=== PATIENT | female | born 1950 | race Caucasian/White ===

== ENCOUNTER 2018-12-20 16:57 | Inpatient (IN) ==
[2018-12-20 17:30] LABS: Baso % (Auto) 0.2 % (0.0-2.0); Hematocrit 36.7 % (35.0-46.0); Hemoglobin 12.1 gm/dL (11.6-15.3); Lymph # (Auto) 1.3 th/mm3 (1.0-4.8); Lymph % (Auto) 10.8 % (9.0-44.0); Mean Corpuscular HGB Conc 33.1 % (32.0-36.0); Mean Corpuscular Hemoglobin 30.6 pg (27.0-34.0); Mean Corpuscular Volume 92.5 fL (80.0-100.0); Mean Platelet Volume 7.5 fL (7.0-11.0); Mono # (Auto) 0.4 th/mm3 (0.0-0.9); Mono % (Auto) 3.5 % (0.0-8.0); Neut # (Auto) 10.5 th/mm3 (1.8-7.7); Neut % (Auto) 85.5 % (16.0-70.0); Platelet Count 295 th/mm3 (150-450); Red Blood Count 3.97 mil/mm3 (4.00-5.30); Red Cell Distribution Width 14.2 % (11.6-17.2); White Blood Count 12.3 th/mm3 (4.0-11.0)
[2018-12-20 17:51] LABS: Albumin 3.4 g/dL (3.4-5.0); Anion Gap 5 meq/L (5-15); Aspartate Aminotransferase 21 U/L (15-37); Blood Urea Nitrogen 30 mg/dL (7-18); Carbon Dioxide 31.9 meq/L (21.0-32.0); Chloride 109 meq/L (98-107); Glomerular Filtration Rate 56 mL/min (>89); Glucose,Random 196 mg/dL (74-106); Sodium 146 meq/L (136-145)
--- NOTE | 2018-12-20 17:51 | ED ---
HPI General Chief complaint: Respiratory Symptoms Stated complaint: resp complaint Time Seen by Provider: 12/20/18 17:06 History of Present Illness HPI narrative: Patient is a 68-year-old female presents emergency department for evaluation of shortness of breath. According to EMS the patient was satting about 82% on her home oxygen at home. She apparently was just here for COPD exacerbation spent several days in the hospital and ultimately discharged. States she is on steroids currently, EMS did give under 25 mg of Solu-Medrol and 3 albuterol treatments prior to arrival and her saturations 100% on the breathing treatment. Patient having prolonged expiration and short phrase dyspnea on arrival limiting her history somewhat. Related Data Home Medications Medication Instructions Recorded Confirmed albuterol sulfate [Ventolin HFA] 2 puff INHALATION Q6H PRN 12/19/18 12/20/18 budesonide-formoterol [Symbicort] 2 puff INHALATION BID 12/19/18 12/20/18 bupropion HCl 150 mg PO DAILY 12/19/18 12/20/18 gemfibrozil 600 mg PO DAILY 12/19/18 12/20/18 tiotropium bromide [Spiriva with 1 cap INHALATION DAILY 12/19/18 12/20/18 HandiHaler] Previous Rx's Medication Instructions Recorded aspirin 81 mg PO DAILY #30 tab 12/19/18 atorvastatin 40 mg PO HS 30 Days #30 tab 12/19/18 benzonatate [Tessalon Perles] 100 mg PO Q8H PRN #21 cap 12/19/18 carvedilol [Coreg] 3.125 mg PO BID #60 tab 12/19/18 enalapril maleate 5 mg PO BID #60 tab 12/19/18 guaifenesin [Mucinex] 600 mg PO BID #14 tab 12/19/18 isosorbide mononitrate 30 mg PO DAILY@0700 #30 tab 12/19/18 prednisone 20 mg PO BID #15 tab 12/19/18 levofloxacin [Levaquin] 500 mg PO DAILY 5 Days #5 tab 12/20/18 Allergies Allergy/AdvReac Type Severity Reaction Status Date / Time No Known Allergies Allergy Verified 12/20/18 17:23 Review of Systems ROS: all other systems reviewed are negative [facility] Medical History Medical History Myocardial infarction (Acute) COPD (chronic obstructive pulmonary disease) (Acute) Hyperlipidemia (Acute) Surgical History Surgical History Hx of cardiac cath (Acute) History of bilateral tubal ligation (Acute) Status post appendectomy (Acute) Family History Family History Other Coronary artery disease Diabetes mellitus Social History Social History Substance History: No History of Abuse 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 SKIN: Focused skin assessment warm/dry. HEAD: Atraumatic. Normocephalic. EYES: Pupils equal and round. No scleral icterus. No injection or drainage. ENT: No nasal bleeding or discharge. Mucous membranes pink and moist. NECK: Trachea midline. No JVD. CARDIOVASCULAR: Regular rate and rhythm. No murmur appreciated. RESPIRATORY: As above patient with prolonged expiration phase, expiratory wheezing throughout all lung lara. No rales or rhonchi. There are some intercostal retractions. Tripod position. GASTROINTESTINAL: Abdomen soft, non-tender, nondistended. Hepatic and splenic margins not palpable. MUSCULOSKELETAL: No obvious deformities. No clubbing. No cyanosis. No edema. NEUROLOGICAL: Awake and alert. No obvious cranial nerve deficits. Motor grossly within normal limits. Normal speech. PSYCHIATRIC: Appropriate mood and affect; insight and judgment normal. Course Initial Documented Vital Signs Temperature 98.2 F 12/20/18 17:07 Pulse Rate 108 H 12/20/18 17:07 Respiratory Rate 28 H 12/20/18 17:07 Blood Pressure 115/78 12/20/18 17:07 Pulse Oximetry 96 12/20/18 17:07 Last Documented Vital Signs Temperature 98.4 F 12/20/18 18:12 Pulse Rate 105 H 12/20/18 19:46 Respiratory Rate 24 12/20/18 19:46 Blood Pressure 143/75 H 12/20/18 19:00 Pulse Oximetry 100 12/20/18 19:46 Medical Decision Making MDM Narrative Medical decision making narrative: Patient is improved significantly with steroids, DuoNeb given here in the emergency department, still with expiratory wheezing but the patient is now able to speak in long sentences. Chest x-ray clear, labs are reassuring. An additional 3 duo nebs have been ordered. She may still require readmission but I think is reasonable to hold her here a little longer to see if she improves enough to go home. The patient was reexamined after DuoNeb treatment, she has persistent significant inspiratory and expiratory wheezing. She was ambulated and she became quite dyspneic during ambulation with an oxygen saturation in the low 90s on 2 L. She was admitted for observation for COPD exacerbation. Medical Screen Exam Complete: Yes Emergency Medical Condition: Yes Lab Data Result diagrams: 12/20/18 17:15 12/20/18 17:15 Lab Results 12/20/18 12/20/18 Range/Units 17:15 17:15 WBC 12.3 H (4.0-11.0) th/mm3 RBC 3.97 L (4.00-5.30) mil/mm3 Hgb 12.1 (11.6-15.3) gm/dL Hct 36.7 (35.0-46.0) % MCV 92.5 (80.0-100.0) fL MCH 30.6 (27.0-34.0) pg MCHC 33.1 (32.0-36.0) % RDW 14.2 (11.6-17.2) % Plt Count 295 (150-450) th/mm3 MPV 7.5 (7.0-11.0) fL Neut % (Auto) 85.5 H (16.0-70.0) % Lymph % (Auto) 10.8 (9.0-44.0) % Iron % (Auto) 3.5 (0.0-8.0) % Eos % (Auto) 0.0 (0.0-4.0) % Baso % (Auto) 0.2 (0.0-2.0) % Neut # (Auto) 10.5 H (1.8-7.7) th/mm3 Lymph # (Auto) 1.3 (1.0-4.8) th/mm3 Iron # (Auto) 0.4 (0.0-0.9) th/mm3 Eos # (Auto) 0.0 (0.0-0.4) th/mm3 Baso # (Auto) 0.0 (0.0-0.2) th/mm3 WBC Differential . Differential Comment Auto diff final Sodium 146 H (136-145) meq/L Potassium 4.0 (3.5-5.1) meq/L Chloride 109 H (98-107) meq/L Carbon Dioxide 31.9 (21.0-32.0) meq/L Anion Gap 5 (5-15) meq/L BUN 30 H (7-18) mg/dL Creatinine 0.99 (0.50-1.00) mg/dL Estimated GFR 56 L (>89) mL/min Random Glucose 196 H (74-106) mg/dL Calcium 8.0 L (8.5-10.1) mg/dL Total Bilirubin 0.2 (0.2-1.0) mg/dL AST 21 (15-37) U/L ALT 25 (10-53) U/L Alkaline Phosphatase 69 (45-117) U/L Total Protein 6.4 (6.4-8.2) g/dL Albumin 3.4 (3.4-5.0) g/dL Imaging Data Radiologist's impression: Chest X-Ray 12/20/18 17:08 CONCLUSION: No acute cardiopulmonary disease. Discharge Plan Discharge Disposition Patient Disposition: ED Admit(ED Internal Use Only) Discharge Condition Condition: Stable Discharge Order Discharge Orders: ED Use Only Admit Order (Routine); Ordered 12/20/18 Ordered By: Homer Campbell Discharge Details Diagnosis: COPD exacerbation Physicians Team ED Provider: Harjit Zavala ED Midlevel Provider: Homer Campbell Primary Care Provider: Primary Care Angiei,Eliane Attending Provider: Stefani Marcum Status ED Status: Admitted Observation Patient
[2018-12-20 17:54] LABS: Alanine Aminotransferase 25 U/L (10-53); Alkaline Phosphatase 69 U/L (45-117); Total Protein 6.4 g/dL (6.4-8.2)
--- NOTE | 2018-12-20 18:08 | XR ---
EXAM DATE: 12/20/2018 6:00 PM EST AGE/SEX: 68 years / Female INDICATIONS: . Short of breath CLINICAL DATA: This is the patient's sequela encounter. Patient reports that signs and symptoms have been present for 4 - 6 days and indicates a pain score of 0/10. MEDICAL/SURGICAL HISTORY: Hypertension. None. COMPARISON: [facility] [place] 1[place] SINGLE AP, 12/16/2018. . FINDINGS: PA and lateral views of the chest demonstrate the lungs to be symmetrically aerated without evidence of mass, infiltrate or effusion. The cardiomediastinal contours are unremarkable. Osseous structures are intact. CONCLUSION: No acute cardiopulmonary disease. Electronically signed by: Shashi Norris MD Board Certified Radiologist 12/20/2018 6:07 PM EST
[2018-12-20] MEDS ORDERED: guaiFENesin/Dextromethorphan 200 MG/20 MG 10 ML UDC PO ONE (19:38)
[2018-12-20] MEDS ORDERED: Acetaminophen 325 MG Tablet PO PRN (21:38)
[2018-12-20] MEDS ORDERED: Bisacodyl 10 MG Supp RECTAL PRN (21:38)
--- NOTE | 2018-12-20 21:46 | P.HPIM ---
History of Present Illness Primary Care Physician: No Primary Care Physician 68-year-old female with a past medical history significant for COPD on 2 L nasal cannula at night and as needed, hyperlipidemia and coronary artery disease resents to the emergency department for the evaluation of shortness of breath. The patient was discharged from the hospital earlier today where she was treated for a COPD exacerbation with steroids and Levaquin and diagnosed with an N STEMI during her stay. Cardiac catheterization showed mild to moderate three-vessel coronary artery disease with no definitive high-grade stenosis with overall preserved LV function EF estimated at 55%. The patient reports she was at home and had just finished lunch when she became short of breath. She reports her oxygen saturation was in the low 80s on her home pulse ox despite taking a breathing treatment. She had another nebulizer and reports that her oxygen dropped into the 70s. EMS was called for further evaluation. The patient denies any chest pain. No abdominal pain. No nausea/vomiting/ diarrhea. No focal neurologic deficits. 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) Smoking Status: Former smoker How Often Do You Have a Drink Containing Alcohol: Monthly or less Recent Travel in [facility] within the Last 8 Weeks: No Recent Out of Country Travel within the Last 8 Weeks: No Immunization History Tetanus Immunization: Unsure Medications and Allergies Allergies Allergy/AdvReac Type Severity Reaction Status Date / Time No Known Allergies Allergy Verified 12/20/18 17:23 Home Medications Medication Instructions Recorded Confirmed Type albuterol sulfate [Ventolin HFA] 2 puff INHALATION Q6H PRN 12/19/18 12/20/18 History budesonide-formoterol [Symbicort] 2 puff INHALATION BID 12/19/18 12/20/18 History bupropion HCl 150 mg PO DAILY 12/19/18 12/20/18 History gemfibrozil 600 mg PO DAILY 12/19/18 12/20/18 History tiotropium bromide [Spiriva with 1 cap INHALATION DAILY 12/19/18 12/20/18 History HandiHaler] Active Medications: Active Medications Acetaminophen (Tylenol) 650 mg PO Q4H PRN PRN Reason: Temp > 100.4 Al Hydroxide/Mg Hydroxide (Milk Of Magnesia Liq) 30 ml PO Q12H PRN PRN Reason: Mild Constipation Albuterol (Duoneb Neb (Holly)) 1 ampul NEB Q4HR NEB HOLLY Atorvastatin Calcium (Lipitor) 40 mg PO HS HOLLY Benzonatate (Tessalon Perles) 100 mg PO Q8H PRN PRN Reason: Cough Bisacodyl (Dulcolax Supp) 10 mg RECTAL DAILY PRN PRN Reason: SEVERE CONSITIPATION Heparin Sodium (Porcine) (Heparin Inj) 5,000 units SQ Q12H HOLLY Lactulose (Lactulose Liq) 30 ml PO DAILY PRN PRN Reason: SEVERE CONSITIPATION Levofloxacin (Levaquin) 750 mg PO DAILY [facility] Methylprednisolone Sodium Succinate (Solumedrol Inj) 60 mg IV.PUSH Q6H [facility] Ondansetron HCl (Zofran Inj) 4 mg IV.PUSH Q6H PRN PRN Reason: NAUSEA OR VOMITING Senna/Docusate Sodium (Nicolasa-Colace) 1 tab PO BID [facility] Sennosides (Senokot) 17.2 mg PO Q12H PRN PRN Reason: Moderate Constipation Sodium Chloride (Ns Flush) 2 ml IV.FLUSH UNSCH PRN PRN Reason: FLUSH AFTER USING IV ACCESS Last Admin: 12/20/18 17:20 Dose: 2 ml Sodium Chloride (Ns Flush) 2 ml IV.FLUSH BID HOLLY Sodium Chloride (Ns Flush) 2 ml IV.FLUSH PRN PRN PRN Reason: FLUSH AFTER USING IV ACCESS Sodium Chloride (Ns Flush) 2 ml IV.FLUSH BID HOLLY Sodium Chloride (Ns Flush) 2 ml IV.FLUSH PRN PRN PRN Reason: FLUSH AFTER USING IV ACCESS Physical Exam Vital signs: Vital Signs 12/20/18 17:07 12/20/18 17:15 12/20/18 17:16 Temperature 98.2 F 98.2 F Pulse Rate 108 H 110 H 109 H Respiratory Rate 28 H 25 H 23 Blood Pressure 115/78 115/78 Pulse Oximetry 96 94 L 95 12/20/18 18:12 12/20/18 18:35 12/20/18 19:00 Temperature 98.4 F Pulse Rate 109 H 105 H 112 H Respiratory Rate 25 H 20 24 Blood Pressure 151/72 H 143/75 H Pulse Oximetry 96 97 12/20/18 19:46 12/20/18 21:00 Temperature Pulse Rate 105 H 102 H Respiratory Rate 24 24 Blood Pressure 138/68 Pulse Oximetry 100 97 Intake & Output 12/20/18 12/20/18 12/21/18 06:59 18:59 06:59 Weight 63.796 kg Narrative: Gen.: No acute distress Head: Normocephalic. Atraumatic. EENT: Pupils equal round and reactive to light. Nose without drainage. Airway intact. Throat without injection. Cardiovascular: Regular rate and rhythm. No murmurs, rubs or gallops. Respiratory: Poor air movement. Bilateral wheezes throughout. Abdomen: Soft, nontender, nondistended. No peritoneal signs. Musculoskeletal: No gross deformities. No edema. Skin: No obvious rashes or erythema. Neuro: Sensory and motor grossly intact. Cranial nerves II through XII grossly intact. Results Labs CBC & Chem 7: 12/20/18 17:15 12/20/18 17:15 Imaging Impressions Chest X-Ray 12/20/18 17:08 CONCLUSION: No acute cardiopulmonary disease. Caprini VTE Risk Assessment Caprini VTE Risk Assessment: Moderate/High Risk (score >= 2) Caprini Risk Assessment Model: Point Value = 1 Point Value = 2 Point Value = 3 Point Value = 5 Age 41-60 Minor surgery BMI > 25 kg/m2 Swollen legs Varicose veins or History of unexplained or recurrent spontaneous Oral contraceptives or hormone replacement Sepsis (< 1 month) Serious lung disease, including pneumonia (< 1 month) Abnormal pulmonary function Acute myocardial infarction Congestive heart failure (< 1 month) History of inflammatory bowel disease Medical patient at bed rest Age 61-74 Arthroscopic surgery Major open surgery (> 45 min) Laparoscopic surgery (> 45 min) Malignancy Confined to bed (> 72 hours) Immobilizing plaster cast Central venous access Age >= 75 History of VTE Family history of VTE Factor V Leiden Prothrombin [id number] Lupus anticoagulant Anticardiolipin antibodies Elevated serum homocysteine Heparin-induced thrombocytopenia Other congenital or acquired thrombophilia Stroke (< 1 month) Elective arthroplasty Hip, pelvis, or leg fracture Acute spinal cord injury (< 1 month) Prophylaxis Regimen: Total Risk Factor Score Risk Level Prophylaxis Regimen 0-1 Low Early ambulation 2 Moderate Order ONE of the following: *Sequential Compression Device (SCD) *Heparin 5000 units SQ BID 3-4 Higher Order ONE of the following medications: *Heparin 5000 units SQ TID *Enoxaparin/Lovenox 40 mg SQ daily (WT < 150 kg, CrCl > 30 mL/min) *Enoxaparin/Lovenox 30 mg SQ daily (WT < 150 kg, CrCl > 10-29 mL/min) *Enoxaparin/Lovenox 30 mg SQ BID (WT < 150 kg, CrCl > 30 mL/min) AND/OR *Sequential Compression Device (SCD) 5 or more Highest Order ONE of the following medications: *Heparin 5000 units SQ TID (Preferred with Epidurals) *Enoxaparin/Lovenox 40 mg SQ daily (WT < 150 kg, CrCl > 30 mL/min) *Enoxaparin/Lovenox 30 mg SQ daily (WT < 150 kg, CrCl > 10-29 mL/min) *Enoxaparin/Lovenox 30 mg SQ BID (WT < 150 kg, CrCl > 30 mL/min) AND *Sequential Compression Device (SCD) Assessment and Plan Plan Assessment/plan: 1. COPD exacerbation Continue supplemental oxygen IV steroids Continue Fely Brooke scheduled Supplemental oxygen Consult pulmonology, appreciate assistance 2. Coronary artery disease See HPI for cardiac catheterization details Continue beta-olivia and aspirin 3. Hyperlipidemia Continue gemfibrozil and statin FEN Heart healthy diet Electrolytes: Monitor and replete as needed Heparin
[2018-12-20] MEDS: MethylPREDNISolone Sod Succinate Inj 125 MG/2 ML Vial IV.PUSH SCH (23:28)
[2018-12-20] MEDS: Heparin - SQ 10,000 UNITS/ML Vial SQ SCH (23:28)
[2018-12-21] MEDS: Benzonatate 100 MG Capsule PO PRN ×2 (00:04→20:55)
[2018-12-21 03:11] LABS: ABG Base Excess 5.4 mmol/L (-2-2); ABG PCO2 52 mmHg (38-42); ABG PO2 106 mmHg (61-120)
[2018-12-21] MEDS: MethylPREDNISolone Sod Succinate Inj 125 MG/2 ML Vial IV.PUSH SCH ×4 (04:34→23:26)
[2018-12-21] MEDS: Isosorbide Mononitrate 30 MG ER 24HR Tablet (Imdur) PO SCH (06:02)
[2018-12-21] MEDS: Gemfibrozil 600 MG Tablet PO SCH (08:23)
[2018-12-21] MEDS: levoFLOXacin 750 MG Tablet PO SCH (08:23)
[2018-12-21] MEDS: Senna/Docusate Sodium 8.6/50 MG Tablet PO SCH ×2 (08:24→20:48)
[2018-12-21 09:43] LABS: Baso % (Auto) 0.1 % (0.0-2.0); Hematocrit 34.2 % (35.0-46.0); Hemoglobin 11.6 gm/dL (11.6-15.3); Lymph # (Auto) 0.7 th/mm3 (1.0-4.8); Lymph % (Auto) 6.9 % (9.0-44.0); Mean Corpuscular HGB Conc 33.8 % (32.0-36.0); Mean Corpuscular Hemoglobin 30.5 pg (27.0-34.0); Mean Corpuscular Volume 90.2 fL (80.0-100.0); Mean Platelet Volume 7.5 fL (7.0-11.0); Mono # (Auto) 0.1 th/mm3 (0.0-0.9); Mono % (Auto) 1.3 % (0.0-8.0); Neut # (Auto) 9.4 th/mm3 (1.8-7.7); Neut % (Auto) 91.7 % (16.0-70.0); Platelet Count 285 th/mm3 (150-450); Red Blood Count 3.79 mil/mm3 (4.00-5.30); Red Cell Distribution Width 13.9 % (11.6-17.2); White Blood Count 10.3 th/mm3 (4.0-11.0)
[2018-12-21] MEDS: Budesonide-Formoterol 160/4.5 MCG 6 GM Inhaler INH SCH ×2 (10:10→20:48)
[2018-12-21] MEDS: buPROPion 150 MG XL 24 HR Tablet PO SCH (10:10)
[2018-12-21] MEDS: Tiotropium Bromide 18 MCG/ACT Inhaler INH SCH (10:11)
[2018-12-21 10:13] LABS: Calcium 8.4 mg/dL (8.5-10.1); Carbon Dioxide 33.3 meq/L (21.0-32.0); Potassium 3.8 meq/L (3.5-5.1)
--- NOTE | 2018-12-21 10:14 | P.PNIM ---
Subjective Interval history: Very pleasant female at the margin of the bed she appears in acute distress due to shortness of breath and wheezing. She is talking in short sentences and she is visibly short of breath. Says her oxygen saturation dropped to 80s. Says she has oxygen at home with 3 L however now she is requiring 4 L by nasal cannula. Denies chest pain. Has some nonproductive cough says she feels congested but not nothing comes out. No nausea or vomiting. She is not eating much because not much appetite Physical Exam Vital signs: Vital Signs 12/20/18 17:07 12/20/18 17:15 12/20/18 17:16 Temperature 98.2 F 98.2 F Pulse Rate 108 H 110 H 109 H Respiratory Rate 28 H 25 H 23 Blood Pressure 115/78 115/78 Pulse Oximetry 96 94 L 95 12/20/18 18:12 12/20/18 18:35 12/20/18 19:00 Temperature 98.4 F Pulse Rate 109 H 105 H 112 H Respiratory Rate 25 H 20 24 Blood Pressure 151/72 H 143/75 H Pulse Oximetry 96 97 12/20/18 19:46 12/20/18 21:00 12/20/18 23:02 Temperature Pulse Rate 105 H 102 H 103 H Respiratory Rate 24 24 24 Blood Pressure 138/68 Pulse Oximetry 100 97 12/20/18 23:35 12/21/18 00:16 12/21/18 00:36 Temperature 97.9 F Pulse Rate 95 H 99 H Respiratory Rate 24 16 Blood Pressure 162/85 H 129/71 Pulse Oximetry 95 98 97 12/21/18 01:56 12/21/18 03:20 12/21/18 04:28 Temperature 97.2 F L Pulse Rate 105 H 104 H 92 H Respiratory Rate 23 25 H 22 Blood Pressure 144/72 H Pulse Oximetry 12/21/18 04:35 12/21/18 06:28 12/21/18 07:00 Temperature Pulse Rate 93 H 96 H 94 H Respiratory Rate 20 Blood Pressure Pulse Oximetry 12/21/18 08:00 Temperature 98.6 F Pulse Rate 96 H Respiratory Rate 22 Blood Pressure 139/77 Pulse Oximetry 97 Intake & Output 12/20/18 12/21/18 12/21/18 18:59 06:59 18:59 Intake Total 120 / 120 Output Total 100 / 100 Balance Weight 63.796 kg 63 kg Intake: Oral 120 / 120 Output: Urine 100 / 100 Other: Date of Last Bowel Movement 12/20/18 12/20/18 Weight On Admission 63.796 kg Narrative: Gen.: 68 yo female, appears short of breath. Cardiovascular: Regular rate and rhythm. No murmurs, rubs or gallops. Respiratory: Poor air movement. Scattered wheezing. Short of breath. Abdomen: Soft, nontender, nondistended. No peritoneal signs. Musculoskeletal: No gross deformities. No edema. Skin: No obvious rashes or erythema. Neuro: Sensory and motor grossly intact. Cranial nerves grossly intact. Normal speech. Results Labs CBC & Chem 7: 12/21/18 09:01 12/21/18 09:01 Imaging Imaging: Impressions Chest X-Ray 12/20/18 17:08 CONCLUSION: No acute cardiopulmonary disease. Assessment and Plan Plan COPD exacerbation Acute on chronic respiratory failure patient is on 2-3 L at home. Now requiring 4 L by nasal cannula Continue supplemental oxygen IV steroids, taper as tolerated Continue Levaquin DuoNeb scheduledand as need taper Supplemental oxygen, keep O2 sat >92%, monitor Add IS, EZ Pap Consult pulmonology, appreciate assistance Coronary artery disease See HPI for cardiac catheterization details Continue beta-olivia and aspirin Hyperlipidemia Continue gemfibrozil and statin DVT ppx Heparin Progress Note: Quality VTE Deep Vein Thrombosis/Pulmonary Embolism Present on Admission: No
[2018-12-21] MEDS: Heparin - SQ 10,000 UNITS/ML Vial SQ SCH ×2 (11:24→23:26)
--- NOTE | 2018-12-21 14:18 | ECG ---
Date Performed: 12/20/2018 Time Performed: 20:26:18 PTAGE: 68 years EKG: SINUS TACHYCARDIA LOW QRS VOLTAGE IN EXTREMITY LEADS MINIMAL ST DEPRESSION ABNORMAL RHYTHM ECG Since the PREVIOUS TRACING , no significant change noted PREVIOUS TRACIN12/17/2018 04.36 DOCTOR: Carl Freitas Interpretating Date/Time 12/21/2018 14:13:38
--- NOTE | 2018-12-21 14:19 | ECG ---
Date Performed: 12/20/2018 Time Performed: 17:09:59 PTAGE: 68 years EKG: SINUS TACHYCARDIA LOW QRS VOLTAGE IN EXTREMITY LEADS ABNORMAL RHYTHM ECG Since the PREVIOUS TRACING , no significant change noted PREVIOUS TRACING DOCTOR: Carl Freitas Interpretating Date/Time 12/21/2018 14:13:50
--- NOTE | 2018-12-21 15:29 | MB ---
cc: Jacinto Renae MD DATE: 12/21/[address] Diaz. REASON FOR CONSULTATION: Evaluation shortness of breath. HISTORY OF PRESENT ILLNESS: Ms. Dumas is a 68-year-old female from [place]. She has a history of COPD. She is oxygen dependent, uses oxygen 3 liter nasal cannula. The patient was recently discharged from this hospital. She was admitted with shortness of breath and chest discomfort. She had a cardiac catheterization done by Dr. Ramirez. She was found to have 3-vessel [id number] disease; no high grade obstruction and no intervention was needed. The patient was discharged from the hospital a few hours later. She says that she was taking a shower, became more short of breath. She her oxygen back on; oxygen was still low. She did not have any chest pain. No palpitation. No nausea or vomiting. She called the ER and came back to the hospital. She had a workup done. Her blood gas showed pH 7.38, pCO2 of 52, pO2 106, bicarbonate 30, saturation 97% on 3 liters nasal cannula. Her WBC count is 10.3, hemoglobin 11.6, hematocrit 34.2, MCV 90, platelets are 285. Her sodium 145, potassium 3.8, chloride 105, CO2 of 33, BUN 20, creatinine 0.78. PAST MEDICAL HISTORY: Significant for history of COPD; she is oxygen dependent, history of recent cardiac catheterization done and hyperlipidemia. MEDICATIONS: She is currently takin. Acetaminophen. 2. Nebulizer treatment with DuoNeb. 3. Aspirin 81 mg. 4. Lipitor 40 mg a day. 5. Tessalon 100 mg every 8 hours. 6. Dulcolax suppositories. 7. Symbicort 160/4.5 two puffs twice a day. 8. Wellbutrin XL 150 mg a day. 9. Coreg 3.125 mg twice a day. 10. Vasotec 5 mg twice a day. 11. Lopid 600 mg a day. 12. Heparin 5000 every 12 hours. 13. Levaquin 750 mg a day. 14. Spiriva once a day. ALLERGIES: NO KNOWN DRUG ALLERGIES. SOCIAL HISTORY: She is a . She lives with her daughter, son-in-law, and grandchildren. She has 4 daughters. She has a history of smoking for 35 years, a pack a day, which she quit 4 years ago. No alcohol abuse. 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 REVIEW OF SYSTEMS: CONSTITUTIONAL: She is able to walk short distances; uses oxygen all the time. No headache or dizziness There is no nausea, vomiting. No DVT or pulmonary embolism. GENERAL: Elderly female, mild short of breath and she is not in any acute distress. VITAL SIGNS: Blood pressure 139/77, heart rate 96, respirations 22, temperature 96. HEENT: Pupils are equal and reactive to light. Oral mucosa and nasal mucosa normal. NECK: Supple. JVP not raised. CHEST: Good air entry. Faint rhonchi. CARDIOVASCULAR: S1, S2 normal. ABDOMEN: Benign. EXTREMITIES: No edema. IMPRESSION: 1. Chronic obstructive pulmonary disease with mild exacerbation. 2. Dyspnea. 3. Coronary artery disease. 4. Hyperlipidemia. PLAN: We will supplement oxygen to keep her saturations greater than 92%. Continue antibiotic, aerosol treatment, albuterol and Atrovent, Symbicort twice a day, Lipitor 40 mg a day and Solu-Medrol 60 mg every 6 hours. Check a bedside pulmonary function study. Further treatment pending the course in the hospital. Thank you Dr. Diaz for this consult. MD FELICITAS Leyva/lópez , 02:55 PM , 03:05 PM
[2018-12-22] MEDS: Benzonatate 100 MG Capsule PO PRN ×3 (04:49→20:59)
[2018-12-22] MEDS: MethylPREDNISolone Sod Succinate Inj 125 MG/2 ML Vial IV.PUSH SCH ×4 (06:35→22:49)
[2018-12-22] MEDS: Isosorbide Mononitrate 30 MG ER 24HR Tablet (Imdur) PO SCH (06:36)
[2018-12-22] MEDS: buPROPion 150 MG XL 24 HR Tablet PO SCH (08:11)
[2018-12-22] MEDS: Senna/Docusate Sodium 8.6/50 MG Tablet PO SCH ×2 (08:12→20:52)
[2018-12-22] MEDS: Gemfibrozil 600 MG Tablet PO SCH (08:13)
[2018-12-22] MEDS: levoFLOXacin 750 MG Tablet PO SCH (08:13)
[2018-12-22] MEDS: Tiotropium Bromide 18 MCG/ACT Inhaler INH SCH (08:14)
[2018-12-22] MEDS: Budesonide-Formoterol 160/4.5 MCG 6 GM Inhaler INH SCH ×2 (08:15→20:51)
--- NOTE | 2018-12-22 10:37 | P.PNIM ---
Subjective Interval history: The patient is in bed without much improvement today, she is still with wheezing and shortness of breath. With cough nonproductive. Speaking in short sentences this the patient is with shortness of breath. Some nausea on and off however no vomiting. Not eating much no appetite. Physical Exam Vital signs: Vital Signs 12/21/18 11:00 12/21/18 12:00 12/21/18 12:22 Temperature Pulse Rate 90 90 83 Respiratory Rate 20 18 Blood Pressure 124/88 Pulse Oximetry 12/21/18 13:00 12/21/18 14:00 12/21/18 15:00 Temperature Pulse Rate 96 H 98 H 90 Respiratory Rate Blood Pressure Pulse Oximetry 12/21/18 16:00 12/21/18 16:05 12/21/18 17:00 Temperature Pulse Rate 92 H 86 90 Respiratory Rate 22 18 Blood Pressure 134/78 Pulse Oximetry 97 12/21/18 18:00 12/21/18 19:00 12/21/18 20:00 Temperature 97.8 F Pulse Rate 90 93 H 98 H Respiratory Rate 24 Blood Pressure 126/88 Pulse Oximetry 94 L 12/21/18 20:05 12/21/18 21:00 12/21/18 22:00 Temperature Pulse Rate 97 H 94 H 86 Respiratory Rate 25 H Blood Pressure Pulse Oximetry 98 12/21/18 22:18 12/21/18 23:00 12/21/18 23:55 Temperature Pulse Rate 85 82 105 H Respiratory Rate 19 28 H Blood Pressure Pulse Oximetry 98 12/22/18 00:00 12/22/18 01:00 12/22/18 02:00 Temperature 98 F Pulse Rate 84 78 82 Respiratory Rate 20 Blood Pressure 111/67 Pulse Oximetry 97 12/22/18 03:00 12/22/18 03:50 12/22/18 04:00 Temperature 98.1 F Pulse Rate 79 90 86 Respiratory Rate 24 20 Blood Pressure 144/86 H Pulse Oximetry 90 L 12/22/18 05:00 12/22/18 06:00 12/22/18 07:37 Temperature Pulse Rate 100 H 80 97 H Respiratory Rate 18 Blood Pressure Pulse Oximetry 99 12/22/18 08:00 Temperature 98.9 F Pulse Rate 93 H Respiratory Rate 20 Blood Pressure 156/85 H Pulse Oximetry 95 Intake & Output 12/21/18 12/22/18 12/22/18 18:59 06:59 18:59 Intake Total 820 / 820 400 / 400 Output Total 400 / 400 Balance 820 / 820 0 / 0 Weight 63 kg Intake: Oral 820 / 820 400 / 400 Output: Urine 400 / 400 Other: # Voids 3 Date of Last Bowel Movement 12/20/18 12/21/18 12/21/18 Narrative: Gen.: 68 yo female, appears short of breath. Cardiovascular: Regular rate and rhythm. No murmurs, rubs or gallops. Respiratory: Poor air movement. Scattered wheezing. Short of breath. Abdomen: Soft, nontender, nondistended. No peritoneal signs. Musculoskeletal: No gross deformities. No edema. Skin: No obvious rashes or erythema. Neuro: Sensory and motor grossly intact. Cranial nerves grossly intact. Normal speech. Results Labs CBC & Chem 7: 12/21/18 09:01 12/21/18 09:01 Assessment and Plan Plan Severe COPD exacerbation Acute on chronic respiratory failure patient is on 2-3 L at home. Now requiring 4 L by nasal cannula Continue supplemental oxygen IV steroids, taper as tolerated Continue Levaquin DuoNeb scheduledand as need taper Supplemental oxygen, keep O2 sat >92%, monitor Add IS, EZ Pap Add codeine /acetaminophene, tessalon pearles for cough Consult pulmonology, appreciate assistance Protein calorie malnutrition with decreased p.o. intake secondary to severe COPD with exacerbation, add Ensure Coronary artery disease See HPI for cardiac catheterization details Continue beta-olivia and aspirin Hyperlipidemia Continue gemfibrozil and statin DVT ppx Heparin Progress Note: Quality VTE Deep Vein Thrombosis/Pulmonary Embolism Present on Admission: No
[2018-12-22] MEDS: Heparin - SQ 10,000 UNITS/ML Vial SQ SCH ×2 (11:01→22:49)
[2018-12-22] MEDS ORDERED: Benzonatate 100 MG Capsule PO PRN (11:11)
[2018-12-22] MEDS: Acetaminophen/Codeine 300/30 MG Tablet PO PRN ×2 (13:32→20:58)
[2018-12-22] MEDS: Magnesium Oxide 400 MG Tablet PO SCH (14:31)
--- NOTE | 2018-12-22 19:34 | P.PNPL ---
Subjective Interval history: 68 YOWF with Very Severe COPD PFT FEV1 19% of predicted SOB with any activity mild cough no CP Physical Exam Vital signs: Vital Signs 12/21/18 20:00 12/21/18 20:05 12/21/18 21:00 Temperature 97.8 F Pulse Rate 98 H 97 H 94 H Respiratory Rate 24 25 H Blood Pressure 126/88 Pulse Oximetry 94 L 98 12/21/18 22:00 12/21/18 22:18 12/21/18 23:00 Temperature Pulse Rate 86 85 82 Respiratory Rate 19 Blood Pressure Pulse Oximetry 98 12/21/18 23:55 12/22/18 00:00 12/22/18 01:00 Temperature 98 F Pulse Rate 105 H 84 78 Respiratory Rate 28 H 20 Blood Pressure 111/67 Pulse Oximetry 97 12/22/18 02:00 12/22/18 03:00 12/22/18 03:50 Temperature Pulse Rate 82 79 90 Respiratory Rate 24 Blood Pressure Pulse Oximetry 12/22/18 04:00 12/22/18 05:00 12/22/18 06:00 Temperature 98.1 F Pulse Rate 86 100 H 80 Respiratory Rate 20 Blood Pressure 144/86 H Pulse Oximetry 90 L 12/22/18 07:00 12/22/18 07:37 12/22/18 08:00 Temperature 98.9 F Pulse Rate 92 H 97 H 92 H Respiratory Rate 18 20 Blood Pressure 156/85 H Pulse Oximetry 99 95 12/22/18 09:00 12/22/18 10:00 12/22/18 11:00 Temperature Pulse Rate 96 H 88 86 Respiratory Rate Blood Pressure Pulse Oximetry 12/22/18 11:05 12/22/18 12:00 12/22/18 13:00 Temperature 98.8 F Pulse Rate 89 94 H 84 Respiratory Rate 22 20 Blood Pressure 124/75 Pulse Oximetry 97 12/22/18 14:00 12/22/18 14:05 12/22/18 14:41 Temperature Pulse Rate 91 H 93 H Respiratory Rate 18 18 Blood Pressure Pulse Oximetry 12/22/18 15:00 12/22/18 16:00 12/22/18 17:00 Temperature 98.1 F Pulse Rate 87 92 H 97 H Respiratory Rate 18 Blood Pressure 126/78 Pulse Oximetry 99 12/22/18 18:00 12/22/18 18:40 Temperature Pulse Rate 95 H 92 H Respiratory Rate 18 Blood Pressure Pulse Oximetry 98 Intake & Output 12/22/18 12/22/18 12/23/18 06:59 18:59 06:59 Intake Total 400 / 400 720 / 720 Output Total 400 / 400 Balance 0 / 0 720 / 720 Weight 63 kg Intake: Oral 400 / 400 720 / 720 Output: Urine 400 / 400 Other: # Voids 6 Date of Last Bowel Movement 12/21/18 12/22/18 # Bowel Movements 2 GENERAL: Elderly WF, Mild SOB SKIN: Warm and dry. HEAD: Normocephalic. EYES: No scleral icterus. No injection or drainage. NECK: Supple, trachea midline. No JVD or lymphadenopathy. CARDIOVASCULAR: Regular rate and rhythm without murmurs, gallops, or rubs. RESPIRATORY: Breath sounds equal bilaterally. No accessory muscle use. decreased Chest excuesion GASTROINTESTINAL: Abdomen soft, non-tender, nondistended. MUSCULOSKELETAL: No cyanosis, or edema. BACK: Nontender without obvious deformity. No CVA tenderness. Assessment and Plan - Plan IMPRESSION: 1. Chronic obstructive pulmonary disease with mild exacerbation. 2. Dyspnea. 3. Coronary artery disease. 4. Hyperlipidemia. 5. Very Severe COPD 6. Ch resp failure PLAN: Aerosol nebs Supplement 02 to keep sat 88-92% IV Solumedrol SQ Heparin Cont Abx DW pt about her condition and PFT result She wants to be full code
[2018-12-23] MEDS: Isosorbide Mononitrate 30 MG ER 24HR Tablet (Imdur) PO SCH (06:40)
[2018-12-23] MEDS: MethylPREDNISolone Sod Succinate Inj 125 MG/2 ML Vial IV.PUSH SCH ×3 (06:40→17:25)
[2018-12-23] MEDS: Acetaminophen/Codeine 300/30 MG Tablet PO PRN (06:43)
[2018-12-23] MEDS: Benzonatate 100 MG Capsule PO PRN (06:43)
[2018-12-23] MEDS: Tiotropium Bromide 18 MCG/ACT Inhaler INH SCH (08:23)
[2018-12-23] MEDS: Budesonide-Formoterol 160/4.5 MCG 6 GM Inhaler INH SCH (08:24)
[2018-12-23] MEDS: buPROPion 150 MG XL 24 HR Tablet PO SCH (08:25)
[2018-12-23] MEDS: levoFLOXacin 750 MG Tablet PO SCH (08:25)
[2018-12-23] MEDS: Magnesium Oxide 400 MG Tablet PO SCH (08:25)
[2018-12-23] MEDS: Gemfibrozil 600 MG Tablet PO SCH (08:25)
[2018-12-23] MEDS: Senna/Docusate Sodium 8.6/50 MG Tablet PO SCH (08:26)
[2018-12-23] MEDS: Heparin - SQ 10,000 UNITS/ML Vial SQ SCH (11:52)
[2018-12-23] MEDS: guaiFENesin 600 MG ER Tablet PO SCH (11:57)
--- NOTE | 2018-12-23 12:55 | P.PNIM ---
Subjective Interval history: Patient is in nad. Reports she is feeling tired and still with sob and wheezing. However she was able to sleep a little last night. Symptoms are still severe. + nonproductive cough No fever or chills. No n/v/d/c. Physical Exam Vital signs: Vital Signs 12/22/18 13:00 12/22/18 14:00 12/22/18 14:05 Temperature Pulse Rate 84 91 H Respiratory Rate 18 Blood Pressure Pulse Oximetry 12/22/18 14:41 12/22/18 15:00 12/22/18 16:00 Temperature 98.1 F Pulse Rate 93 H 87 92 H Respiratory Rate 18 18 Blood Pressure 126/78 Pulse Oximetry 99 12/22/18 17:00 12/22/18 18:00 12/22/18 18:40 Temperature Pulse Rate 97 H 95 H 92 H Respiratory Rate 18 Blood Pressure Pulse Oximetry 98 12/22/18 20:00 12/22/18 21:00 12/22/18 22:00 Temperature 97 F L Pulse Rate 84 88 82 Respiratory Rate 22 Blood Pressure 129/75 Pulse Oximetry 99 12/22/18 23:00 12/23/18 00:00 12/23/18 00:23 Temperature 97 F L Pulse Rate 82 82 74 Respiratory Rate 22 18 Blood Pressure 121/69 Pulse Oximetry 97 99 12/23/18 01:00 12/23/18 02:00 12/23/18 03:00 Temperature Pulse Rate 74 74 70 Respiratory Rate 20 Blood Pressure Pulse Oximetry 12/23/18 04:00 12/23/18 05:00 12/23/18 06:00 Temperature 98.5 F Pulse Rate 92 H 90 72 Respiratory Rate 20 Blood Pressure 128/73 Pulse Oximetry 94 L 12/23/18 07:00 12/23/18 07:52 12/23/18 08:00 Temperature 98.1 F Pulse Rate 84 82 78 Respiratory Rate 19 16 Blood Pressure 140/79 Pulse Oximetry 96 97 12/23/18 09:00 12/23/18 10:00 12/23/18 11:00 Temperature Pulse Rate 90 86 101 H Respiratory Rate Blood Pressure Pulse Oximetry 12/23/18 11:32 Temperature Pulse Rate 84 Respiratory Rate 18 Blood Pressure Pulse Oximetry Intake & Output 12/22/18 12/23/18 12/23/18 18:59 06:59 18:59 Intake Total 720 / 720 Output Total 350 / 350 Balance 720 / 720 -350 / -350 Weight 63.2 kg Intake: Oral 720 / 720 Output: Urine 350 / 350 Other: # Voids 6 Date of Last Bowel Movement 12/22/18 12/22/18 12/22/18 # Bowel Movements 2 Narrative: Gen.: 68 yo female, appears short of breath. Cardiovascular: Regular rate and rhythm. No murmurs, rubs or gallops. Respiratory: Poor air movement. Scattered wheezing. Short of breath. Abdomen: Soft, nontender, nondistended. No peritoneal signs. Musculoskeletal: No gross deformities. No edema. Skin: No obvious rashes or erythema. Neuro: Sensory and motor grossly intact. Cranial nerves grossly intact. Normal speech. Results Labs CBC & Chem 7: 12/21/18 09:01 12/21/18 09:01 Assessment and Plan Plan Severe COPD exacerbation Acute on chronic respiratory failure patient is on 2-3 L at home. Now requiring 4 L by nasal cannula Continue supplemental oxygen IV steroids, taper as tolerated Continue Levaquin DuoNeb scheduledand as need taper Supplemental oxygen, keep O2 sat >92%, monitor Add IS, EZ Pap Continue codeine /acetaminophen, tessalon pearles for cough. Add mucinex Add claritin po 5 mf daily Consult pulmonology, appreciate assistance Protein calorie malnutrition with decreased p.o. intake secondary to severe COPD with exacerbation, add Ensure Coronary artery disease See HPI for cardiac catheterization details Continue beta-olivia and aspirin Hyperlipidemia Continue gemfibrozil and statin DVT ppx Heparin Discussed with the patient, nurse Progress Note: Quality VTE Deep Vein Thrombosis/Pulmonary Embolism Present on Admission: No
[2018-12-23] MEDS ORDERED: ALPRAZolam 0.25 MG Tablet PO PRN (12:56)
[2018-12-23] MEDS: Loratadine 10 MG Tablet PO SCH (14:30)
--- NOTE | 2018-12-23 18:57 | P.PNPL ---
Subjective Interval history: 68 YOWF with Very Severe COPD PFT FEV1 19% of predicted SOB with any activity mild cough no CP Feels little better today. Ambulates to bath room Physical Exam Vital signs: Vital Signs 12/22/18 20:00 12/22/18 21:00 12/22/18 22:00 Temperature 97 F L Pulse Rate 84 88 82 Respiratory Rate 22 Blood Pressure 129/75 Pulse Oximetry 99 12/22/18 23:00 12/23/18 00:00 12/23/18 00:23 Temperature 97 F L Pulse Rate 82 82 74 Respiratory Rate 22 18 Blood Pressure 121/69 Pulse Oximetry 97 99 12/23/18 01:00 12/23/18 02:00 12/23/18 03:00 Temperature Pulse Rate 74 74 70 Respiratory Rate 20 Blood Pressure Pulse Oximetry 12/23/18 04:00 12/23/18 05:00 12/23/18 06:00 Temperature 98.5 F Pulse Rate 92 H 90 72 Respiratory Rate 20 Blood Pressure 128/73 Pulse Oximetry 94 L 12/23/18 07:00 12/23/18 07:52 12/23/18 08:00 Temperature 98.1 F Pulse Rate 84 82 78 Respiratory Rate 19 16 Blood Pressure 140/79 Pulse Oximetry 96 97 12/23/18 09:00 12/23/18 10:00 12/23/18 11:00 Temperature Pulse Rate 90 86 101 H Respiratory Rate Blood Pressure Pulse Oximetry 12/23/18 11:32 12/23/18 12:00 12/23/18 13:00 Temperature 97.4 F L Pulse Rate 84 92 H 80 Respiratory Rate 18 16 Blood Pressure 124/73 Pulse Oximetry 94 L 12/23/18 14:00 12/23/18 15:00 12/23/18 16:00 Temperature 97.8 F Pulse Rate 96 H 84 94 H Respiratory Rate 16 Blood Pressure 120/69 Pulse Oximetry 97 12/23/18 16:24 12/23/18 17:00 12/23/18 18:00 Temperature Pulse Rate 70 84 88 Respiratory Rate 17 Blood Pressure Pulse Oximetry Intake & Output 12/22/18 12/23/18 12/23/18 18:59 06:59 18:59 Intake Total 720 / 720 1949 Output Total 350 / 350 Balance 720 / 720 -350 / -350 1949 Weight 63.2 kg Intake: Oral 720 / 720 1950 / 1950 Output: Urine 350 / 350 Other: # Voids 6 4 Date of Last Bowel Movement 12/22/18 12/22/18 12/23/18 # Bowel Movements 2 3 GENERAL: MBMN MIld sob SKIN: Warm and dry. HEAD: Normocephalic. EYES: No scleral icterus. No injection or drainage. NECK: Supple, trachea midline. No JVD or lymphadenopathy. CARDIOVASCULAR: Regular rate and rhythm without murmurs, gallops, or rubs. RESPIRATORY: Breath sounds equal bilaterally. No accessory muscle use. GASTROINTESTINAL: Abdomen soft, non-tender, nondistended. Exp rhonchi. MUSCULOSKELETAL: No cyanosis, or edema. BACK: Nontender without obvious deformity. No CVA tenderness. Assessment and Plan - Plan IMPRESSION: 1. Chronic obstructive pulmonary disease with mild exacerbation. 2. Dyspnea. 3. Coronary artery disease. 4. Hyperlipidemia. 5. Very Severe COPD 6. Ch resp failure PLAN: Aerosol nebs Supplement 02 to keep sat 88-92% IV Solumedrol SQ Heparin Cont Abx DW pt about her condition and PFT result OOB and ambulate
[2018-12-24] MEDS: guaiFENesin 600 MG ER Tablet PO SCH ×3 (00:05→21:25)
[2018-12-24] MEDS: Acetaminophen/Codeine 300/30 MG Tablet PO PRN ×2 (00:06→21:30)
[2018-12-24] MEDS: MethylPREDNISolone Sod Succinate Inj 125 MG/2 ML Vial IV.PUSH SCH ×3 (00:06→10:19)
[2018-12-24] MEDS: Heparin - SQ 10,000 UNITS/ML Vial SQ SCH ×3 (00:07→23:06)
[2018-12-24] MEDS: Budesonide-Formoterol 160/4.5 MCG 6 GM Inhaler INH SCH ×3 (00:07→21:26)
[2018-12-24] MEDS: Senna/Docusate Sodium 8.6/50 MG Tablet PO SCH ×3 (00:08→21:26)
[2018-12-24] MEDS: Isosorbide Mononitrate 30 MG ER 24HR Tablet (Imdur) PO SCH (06:15)
--- NOTE | 2018-12-24 10:15 | P.PNIM ---
Subjective Interval history: The margin of the bed still shortness of breath and cough however able to sleep overnight. No fever or chills. She is desaturating with talking and while walking. Still with wheezing. No nausea or vomiting no diarrhea constipation. She is asking for regular diet. Physical Exam Vital signs: Vital Signs 12/23/18 11:00 12/23/18 11:32 12/23/18 12:00 Temperature 97.4 F L Pulse Rate 101 H 84 92 H Respiratory Rate 18 16 Blood Pressure 124/73 Pulse Oximetry 94 L 12/23/18 13:00 12/23/18 14:00 12/23/18 15:00 Temperature Pulse Rate 80 96 H 84 Respiratory Rate Blood Pressure Pulse Oximetry 12/23/18 16:00 12/23/18 16:24 12/23/18 17:00 Temperature 97.8 F Pulse Rate 94 H 70 84 Respiratory Rate 16 17 Blood Pressure 120/69 Pulse Oximetry 97 12/23/18 18:00 12/23/18 19:00 12/23/18 20:00 Temperature Pulse Rate 88 94 H 93 H Respiratory Rate Blood Pressure Pulse Oximetry 12/23/18 20:24 12/23/18 20:27 12/23/18 21:00 Temperature Pulse Rate 84 84 Respiratory Rate 16 Blood Pressure Pulse Oximetry 98 12/23/18 22:00 12/23/18 23:00 12/23/18 23:36 Temperature Pulse Rate 76 74 74 Respiratory Rate 18 Blood Pressure Pulse Oximetry 12/24/18 00:00 12/24/18 01:00 12/24/18 02:00 Temperature 97.5 F L Pulse Rate 74 82 84 Respiratory Rate 18 Blood Pressure 113/61 Pulse Oximetry 99 12/24/18 03:00 12/24/18 03:40 12/24/18 04:00 Temperature 97.6 F Pulse Rate 78 80 84 Respiratory Rate 18 18 Blood Pressure 113/72 Pulse Oximetry 95 12/24/18 05:00 12/24/18 06:00 12/24/18 08:16 Temperature Pulse Rate 84 81 75 Respiratory Rate 18 Blood Pressure Pulse Oximetry 98 12/24/18 10:09 Temperature 98.4 F Pulse Rate 73 Respiratory Rate 20 Blood Pressure 121/59 L Pulse Oximetry 96 Intake & Output 12/23/18 12/24/18 12/24/18 18:59 06:59 18:59 Intake Total 1950 / 1950 240 / 240 Balance 1949 240 / 240 Weight 63.2 kg Intake: Oral 1949 240 / 240 Other: # Voids 4 Date of Last Bowel Movement 12/23/18 12/23/18 # Bowel Movements 3 Narrative: Gen.: 68 yo female, appears short of breath. Cardiovascular: Regular rate and rhythm. No murmurs, rubs or gallops. Respiratory: Poor air movement. Scattered wheezing. Short of breath. Abdomen: Soft, nontender, nondistended. No peritoneal signs. Musculoskeletal: No gross deformities. No edema. Skin: No obvious rashes or erythema. Neuro: Sensory and motor grossly intact. Cranial nerves grossly intact. Normal speech. Results Labs CBC & Chem 7: 12/21/18 09:01 12/21/18 09:01 Assessment and Plan Plan Severe COPD exacerbation Acute on chronic respiratory failure patient is on 2-3 L at home. Now requiring 4 L by nasal cannula Continue supplemental oxygen IV steroids, taper as tolerated Continue Levaquin DuoNeb scheduledand as need taper Supplemental oxygen, keep O2 sat >92%, monitor Add IS, EZ Pap Continue codeine /acetaminophen, tessalon pearles for cough. Add mucinex Add claritin po 5 mf daily Consult pulmonology, appreciate assistance Protein calorie malnutrition with decreased p.o. intake secondary to severe COPD with exacerbation, add Ensure Coronary artery disease See HPI for cardiac catheterization details Continue beta-olivia and aspirin Hyperlipidemia Continue gemfibrozil and statin DVT ppx Heparin Discussed with the patient, nurse Progress Note: Quality VTE Deep Vein Thrombosis/Pulmonary Embolism Present on Admission: No
[2018-12-24] MEDS: Tiotropium Bromide 18 MCG/ACT Inhaler INH SCH (10:18)
[2018-12-24] MEDS: Loratadine 10 MG Tablet PO SCH (10:20)
[2018-12-24] MEDS: Magnesium Oxide 400 MG Tablet PO SCH (10:20)
[2018-12-24] MEDS: Gemfibrozil 600 MG Tablet PO SCH (10:20)
[2018-12-24] MEDS: levoFLOXacin 750 MG Tablet PO SCH (10:21)
[2018-12-24] MEDS: buPROPion 150 MG XL 24 HR Tablet PO SCH (10:21)
--- NOTE | 2018-12-24 18:40 | P.PNPL ---
Subjective Interval history: 68 YOWF with Very Severe COPD PFT FEV1 19% of predicted SOB with any activity mild cough no CP Feels little better today. Ambulates to bath room ' I think I understand my condition and I am at peace with it" Physical Exam Vital signs: Vital Signs 12/23/18 19:00 12/23/18 20:00 12/23/18 20:24 Temperature Pulse Rate 94 H 93 H 84 Respiratory Rate 16 Blood Pressure Pulse Oximetry 12/23/18 20:27 12/23/18 21:00 12/23/18 22:00 Temperature Pulse Rate 84 76 Respiratory Rate Blood Pressure Pulse Oximetry 98 12/23/18 23:00 12/23/18 23:36 12/24/18 00:00 Temperature 97.5 F L Pulse Rate 74 74 74 Respiratory Rate 18 18 Blood Pressure 113/61 Pulse Oximetry 99 12/24/18 01:00 12/24/18 02:00 12/24/18 03:00 Temperature Pulse Rate 82 84 78 Respiratory Rate Blood Pressure Pulse Oximetry 12/24/18 03:40 12/24/18 04:00 12/24/18 05:00 Temperature 97.6 F Pulse Rate 80 84 84 Respiratory Rate 18 18 Blood Pressure 113/72 Pulse Oximetry 95 12/24/18 06:00 12/24/18 07:00 12/24/18 08:00 Temperature Pulse Rate 81 77 74 Respiratory Rate Blood Pressure Pulse Oximetry 12/24/18 08:16 12/24/18 09:00 12/24/18 10:00 Temperature Pulse Rate 75 86 88 Respiratory Rate 18 Blood Pressure Pulse Oximetry 98 12/24/18 10:09 12/24/18 11:00 12/24/18 12:00 Temperature 98.4 F Pulse Rate 73 84 78 Respiratory Rate 20 Blood Pressure 121/59 L Pulse Oximetry 96 12/24/18 12:39 12/24/18 13:00 12/24/18 13:27 Temperature 98.1 F Pulse Rate 75 80 82 Respiratory Rate 20 18 Blood Pressure 118/67 Pulse Oximetry 96 12/24/18 14:00 12/24/18 15:31 12/24/18 16:15 Temperature 97.9 F Pulse Rate 82 77 93 H Respiratory Rate 18 18 Blood Pressure 135/79 Pulse Oximetry 97 Intake & Output 12/23/18 12/24/18 12/24/18 18:59 06:59 18:59 Intake Total 1949 240 / 240 Balance 1949 240 / 240 Weight 63.2 kg Intake: Oral 1949 240 / 240 Other: # Voids 4 Date of Last Bowel Movement 12/23/18 12/23/18 12/23/18 # Bowel Movements 3 GENERAL: Elderly WF mild SOB SKIN: Warm and dry. HEAD: Normocephalic. EYES: No scleral icterus. No injection or drainage. NECK: Supple, trachea midline. No JVD or lymphadenopathy. CARDIOVASCULAR: Regular rate and rhythm without murmurs, gallops, or rubs. RESPIRATORY: Breath sounds equal bilaterally. No accessory muscle use. Decreased Chest excursion End exp rhonchi. GASTROINTESTINAL: Abdomen soft, non-tender, nondistended. MUSCULOSKELETAL: No cyanosis, or edema. BACK: Nontender without obvious deformity. No CVA tenderness. Assessment and Plan - Plan IMPRESSION: 1. Chronic obstructive pulmonary disease with mild exacerbation. 2. Dyspnea. 3. Coronary artery disease. 4. Hyperlipidemia. 5. Very Severe COPD 6. Ch resp failure PLAN: Aerosol nebs Supplement 02 to keep sat 88-92% DCSolumedrol. prednisone 20 mg po tid. SQ Heparin Cont Abx DW pt about her condition and PFT result OOB and ambulate
[2018-12-25] MEDS: Isosorbide Mononitrate 30 MG ER 24HR Tablet (Imdur) PO SCH (06:06)
[2018-12-25] MEDS: Tiotropium Bromide 18 MCG/ACT Inhaler INH SCH (09:23)
[2018-12-25] MEDS: Budesonide-Formoterol 160/4.5 MCG 6 GM Inhaler INH SCH ×2 (09:23→23:38)
[2018-12-25] MEDS: Loratadine 10 MG Tablet PO SCH (09:24)
[2018-12-25] MEDS: Magnesium Oxide 400 MG Tablet PO SCH (09:25)
[2018-12-25] MEDS: Gemfibrozil 600 MG Tablet PO SCH (09:26)
[2018-12-25] MEDS: levoFLOXacin 750 MG Tablet PO SCH (09:26)
[2018-12-25] MEDS: guaiFENesin 600 MG ER Tablet PO SCH ×2 (09:26→23:37)
[2018-12-25] MEDS: buPROPion 150 MG XL 24 HR Tablet PO SCH (09:26)
[2018-12-25] MEDS: predniSONE 20 MG Tablet PO SCH ×3 (09:26→17:34)
[2018-12-25] MEDS: Senna/Docusate Sodium 8.6/50 MG Tablet PO SCH ×2 (09:27→23:38)
[2018-12-25] MEDS: Heparin - SQ 10,000 UNITS/ML Vial SQ SCH ×2 (12:07→23:38)
--- NOTE | 2018-12-25 14:38 | P.PNIM ---
Subjective Interval history: The patient is in bed still with shortness of breath and she is desaturating with ambulation. Still with cough however improved and able to sleep more at night. Still with wheezing intermittent. No chest pain. No nausea no vomiting. Not much appetite trying to eat more. Physical Exam Vital signs: Vital Signs 12/24/18 15:00 12/24/18 15:31 12/24/18 16:00 Temperature Pulse Rate 86 77 83 Respiratory Rate 18 Blood Pressure Pulse Oximetry 12/24/18 16:15 12/24/18 17:00 12/24/18 18:00 Temperature 97.9 F Pulse Rate 93 H 82 90 Respiratory Rate 18 Blood Pressure 135/79 Pulse Oximetry 97 12/24/18 19:00 12/24/18 19:57 12/24/18 20:00 Temperature 99.2 F Pulse Rate 85 79 76 Respiratory Rate 16 18 Blood Pressure 127/73 Pulse Oximetry 98 95 12/24/18 21:00 12/24/18 22:00 12/24/18 23:00 Temperature Pulse Rate 76 78 72 Respiratory Rate Blood Pressure Pulse Oximetry 12/24/18 23:03 12/24/18 23:45 12/25/18 00:00 Temperature 98.8 F Pulse Rate 84 78 66 Respiratory Rate 18 18 Blood Pressure 126/69 Pulse Oximetry 99 12/25/18 01:00 12/25/18 02:00 12/25/18 03:00 Temperature Pulse Rate 68 69 69 Respiratory Rate Blood Pressure Pulse Oximetry 12/25/18 04:00 12/25/18 05:00 12/25/18 05:54 Temperature 97.6 F Pulse Rate 74 73 68 Respiratory Rate 18 Blood Pressure 121/73 Pulse Oximetry 99 12/25/18 06:02 12/25/18 06:08 12/25/18 07:00 Temperature Pulse Rate 74 69 Respiratory Rate 18 Blood Pressure 124/84 Pulse Oximetry 12/25/18 08:00 12/25/18 09:00 12/25/18 10:00 Temperature 98.1 F Pulse Rate 82 90 88 Respiratory Rate Blood Pressure 118/64 Pulse Oximetry 96 12/25/18 11:00 12/25/18 11:11 12/25/18 12:00 Temperature 99.1 F Pulse Rate 78 84 Respiratory Rate 18 Blood Pressure 125/80 Pulse Oximetry 96 96 12/25/18 13:00 12/25/18 14:00 Temperature Pulse Rate 82 88 Respiratory Rate Blood Pressure Pulse Oximetry Intake & Output 12/24/18 12/25/18 12/25/18 18:59 06:59 18:59 Intake Total 690 / 690 640 / 640 Balance 690 / 690 640 / 640 Weight 63 kg Intake: Oral 690 / 690 640 / 640 Other: # Voids 3 2 Date of Last Bowel Movement 12/23/18 12/23/18 12/23/18 # Bowel Movements 0 Narrative: Gen.: 68 yo female, appears short of breath. Cardiovascular: Regular rate and rhythm. No murmurs, rubs or gallops. Respiratory: Poor air movement. Scattered wheezing. Short of breath. Abdomen: Soft, nontender, nondistended. No peritoneal signs. Musculoskeletal: No gross deformities. No edema. Skin: No obvious rashes or erythema. Neuro: Sensory and motor grossly intact. Cranial nerves grossly intact. Normal speech. Results Labs CBC & Chem 7: 12/21/18 09:01 12/21/18 09:01 Assessment and Plan Plan Severe COPD exacerbation Acute on chronic respiratory failure patient is on 2-3 L at home. Now requiring 4 L by nasal cannula Continue supplemental oxygen IV steroids, taper as tolerated. Patient with severe COPD and not able to taper much steroid will start tapering steroids as patient is improving. Continue Levaquin DuoNeb scheduledand as need taper Supplemental oxygen, keep O2 sat >92%, monitor Add IS, EZ Pap Continue codeine /acetaminophen, tessalon pearles for cough. Add mucinex Add claritin po 5 mf daily Consult pulmonology, appreciate assistance Protein calorie malnutrition with decreased p.o. intake secondary to severe COPD with exacerbation, add Ensure Coronary artery disease See HPI for cardiac catheterization details Continue beta-oilvia and aspirin Hyperlipidemia Continue gemfibrozil and statin DVT ppx Heparin Discussed with the patient, nurse Discharge when patient is improving. Taper steroids and if tolerates probably discharge in 1 to 2 days. Progress Note: Quality VTE Deep Vein Thrombosis/Pulmonary Embolism Present on Admission: No
--- NOTE | 2018-12-25 14:41 | P.PNIM ---
Subjective Interval history: Pleasant, in bed appears with sob .No wheezing. No fever or chills. Still with cough and feels congested, non productive cough. Dessatign with walking and when is talking, Physical Exam Vital signs: Vital Signs 12/24/18 15:00 12/24/18 15:31 12/24/18 16:00 Temperature Pulse Rate 86 77 83 Respiratory Rate 18 Blood Pressure Pulse Oximetry 12/24/18 16:15 12/24/18 17:00 12/24/18 18:00 Temperature 97.9 F Pulse Rate 93 H 82 90 Respiratory Rate 18 Blood Pressure 135/79 Pulse Oximetry 97 12/24/18 19:00 12/24/18 19:57 12/24/18 20:00 Temperature 99.2 F Pulse Rate 85 79 76 Respiratory Rate 16 18 Blood Pressure 127/73 Pulse Oximetry 98 95 12/24/18 21:00 12/24/18 22:00 12/24/18 23:00 Temperature Pulse Rate 76 78 72 Respiratory Rate Blood Pressure Pulse Oximetry 12/24/18 23:03 12/24/18 23:45 12/25/18 00:00 Temperature 98.8 F Pulse Rate 84 78 66 Respiratory Rate 18 18 Blood Pressure 126/69 Pulse Oximetry 99 12/25/18 01:00 12/25/18 02:00 12/25/18 03:00 Temperature Pulse Rate 68 69 69 Respiratory Rate Blood Pressure Pulse Oximetry 12/25/18 04:00 12/25/18 05:00 12/25/18 05:54 Temperature 97.6 F Pulse Rate 74 73 68 Respiratory Rate 18 Blood Pressure 121/73 Pulse Oximetry 99 12/25/18 06:02 12/25/18 06:08 12/25/18 07:00 Temperature Pulse Rate 74 69 Respiratory Rate 18 Blood Pressure 124/84 Pulse Oximetry 12/25/18 08:00 12/25/18 09:00 12/25/18 10:00 Temperature 98.1 F Pulse Rate 82 90 88 Respiratory Rate Blood Pressure 118/64 Pulse Oximetry 96 12/25/18 11:00 12/25/18 11:11 12/25/18 12:00 Temperature 99.1 F Pulse Rate 78 84 Respiratory Rate 18 Blood Pressure 125/80 Pulse Oximetry 96 96 12/25/18 13:00 12/25/18 14:00 Temperature Pulse Rate 82 88 Respiratory Rate Blood Pressure Pulse Oximetry Intake & Output 12/24/18 12/25/18 12/25/18 18:59 06:59 18:59 Intake Total 690 / 690 640 / 640 Balance 690 / 690 640 / 640 Weight 63 kg Intake: Oral 690 / 690 640 / 640 Other: # Voids 3 2 Date of Last Bowel Movement 12/23/18 12/23/18 12/23/18 # Bowel Movements 0 Narrative: Gen.: 68 yo female, appears short of breath. Cardiovascular: Regular rate and rhythm. No murmurs, rubs or gallops. Respiratory: Poor air movement. Scattered wheezing. Short of breath. Abdomen: Soft, nontender, nondistended. No peritoneal signs. Musculoskeletal: No gross deformities. No edema. Skin: No obvious rashes or erythema. Neuro: Sensory and motor grossly intact. Cranial nerves grossly intact. Normal speech. Results Labs CBC & Chem 7: 12/21/18 09:01 12/21/18 09:01 Assessment and Plan Plan Severe COPD exacerbation Acute on chronic respiratory failure patient is on 2-3 L at home. Now requiring 4 L by nasal cannula Continue supplemental oxygen IV steroids, taper as tolerated. Continue Levaquin DuoNeb scheduledand as need taper Supplemental oxygen, keep O2 sat >92%, monitor Add IS, EZ Pap Continue codeine /acetaminophen, tessalon pearles for cough. Add mucinex Add claritin po 5 mf daily Consult pulmonology, appreciate assistance Protein calorie malnutrition with decreased p.o. intake secondary to severe COPD with exacerbation, add Ensure Coronary artery disease See HPI for cardiac catheterization details Continue beta-olivia and aspirin Hyperlipidemia Continue gemfibrozil and statin DVT ppx Heparin Discussed with the patient, nurse Discharge when patient is improving. Taper steroids and if tolerates and improves, probably discharge in 1 to 2 days if cleared by pulm. Progress Note: Quality VTE Deep Vein Thrombosis/Pulmonary Embolism Present on Admission: No
--- NOTE | 2018-12-25 18:49 | P.PNPL ---
Subjective Interval history: 68 YOWF with Very Severe COPD PFT FEV1 19% of predicted mild cough no CP Feels little better today. Ambulates to bath room Physical Exam Vital signs: Vital Signs 12/24/18 19:00 12/24/18 19:57 12/24/18 20:00 Temperature 99.2 F Pulse Rate 85 79 76 Respiratory Rate 16 18 Blood Pressure 127/73 Pulse Oximetry 98 95 12/24/18 21:00 12/24/18 22:00 12/24/18 23:00 Temperature Pulse Rate 76 78 72 Respiratory Rate Blood Pressure Pulse Oximetry 12/24/18 23:03 12/24/18 23:45 12/25/18 00:00 Temperature 98.8 F Pulse Rate 84 78 66 Respiratory Rate 18 18 Blood Pressure 126/69 Pulse Oximetry 99 12/25/18 01:00 12/25/18 02:00 12/25/18 03:00 Temperature Pulse Rate 68 69 69 Respiratory Rate Blood Pressure Pulse Oximetry 12/25/18 04:00 12/25/18 05:00 12/25/18 05:54 Temperature 97.6 F Pulse Rate 74 73 68 Respiratory Rate 18 Blood Pressure 121/73 Pulse Oximetry 99 12/25/18 06:02 12/25/18 06:08 12/25/18 07:00 Temperature Pulse Rate 74 69 Respiratory Rate 18 Blood Pressure 124/84 Pulse Oximetry 12/25/18 08:00 12/25/18 09:00 12/25/18 10:00 Temperature 98.1 F Pulse Rate 82 90 88 Respiratory Rate Blood Pressure 118/64 Pulse Oximetry 96 12/25/18 11:00 12/25/18 11:11 12/25/18 12:00 Temperature 99.1 F Pulse Rate 78 84 Respiratory Rate 18 Blood Pressure 125/80 Pulse Oximetry 96 96 12/25/18 13:00 12/25/18 14:00 12/25/18 14:49 Temperature Pulse Rate 82 88 82 Respiratory Rate 18 Blood Pressure Pulse Oximetry 12/25/18 15:00 12/25/18 16:00 12/25/18 17:00 Temperature 98.0 F Pulse Rate 93 H 84 82 Respiratory Rate 16 Blood Pressure 123/79 Pulse Oximetry 98 12/25/18 18:00 Temperature Pulse Rate 90 Respiratory Rate Blood Pressure Pulse Oximetry Intake & Output 12/24/18 12/25/18 12/25/18 18:59 06:59 18:59 Intake Total 690 / 690 640 / 640 1650 / 1650 Output Total 1400 / 1400 Balance 690 / 690 640 / 640 250 / 250 Weight 63 kg Intake: Oral 690 / 690 640 / 640 1650 / 1650 Output: Urine 1400 / 1400 Other: # Voids 3 2 Date of Last Bowel Movement 12/23/18 12/23/18 12/25/18 # Bowel Movements 0 GENERAL: Elderly WF, NAD SKIN: Warm and dry. HEAD: Normocephalic. EYES: No scleral icterus. No injection or drainage. NECK: Supple, trachea midline. No JVD or lymphadenopathy. CARDIOVASCULAR: Regular rate and rhythm without murmurs, gallops, or rubs. RESPIRATORY: Breath sounds equal bilaterally. No accessory muscle use. Decreased chest excursion GASTROINTESTINAL: Abdomen soft, non-tender, nondistended. MUSCULOSKELETAL: No cyanosis, or edema. BACK: Nontender without obvious deformity. No CVA tenderness. Assessment and Plan - Plan IMPRESSION: 1. Chronic obstructive pulmonary disease with mild exacerbation. 2. Dyspnea. 3. Coronary artery disease. 4. Hyperlipidemia. 5. Very Severe COPD 6. Ch resp failure PLAN: Aerosol nebs Supplement 02 to keep sat 88-92% prednisone 20 mg po tid. SQ Heparin Cont Abx DW pt about her condition and PFT result OOB and ambulate DC plans underway Stable from Pulm standpoint.
[2018-12-26] MEDS: Isosorbide Mononitrate 30 MG ER 24HR Tablet (Imdur) PO SCH (06:23)
[2018-12-26] MEDS: guaiFENesin 600 MG ER Tablet PO SCH ×2 (08:50→20:35)
[2018-12-26] MEDS: levoFLOXacin 750 MG Tablet PO SCH (08:50)
[2018-12-26] MEDS: Magnesium Oxide 400 MG Tablet PO SCH (08:50)
[2018-12-26] MEDS: Loratadine 10 MG Tablet PO SCH (08:51)
[2018-12-26] MEDS: Senna/Docusate Sodium 8.6/50 MG Tablet PO SCH ×2 (08:51→20:38)
[2018-12-26] MEDS: buPROPion 150 MG XL 24 HR Tablet PO SCH (08:51)
[2018-12-26] MEDS: Gemfibrozil 600 MG Tablet PO SCH (08:51)
[2018-12-26] MEDS: predniSONE 20 MG Tablet PO SCH ×3 (08:51→17:36)
[2018-12-26] MEDS: Tiotropium Bromide 18 MCG/ACT Inhaler INH SCH (11:54)
[2018-12-26] MEDS: Budesonide-Formoterol 160/4.5 MCG 6 GM Inhaler INH SCH ×2 (11:54→20:36)
[2018-12-26] MEDS: Heparin - SQ 10,000 UNITS/ML Vial SQ SCH ×2 (13:02→22:55)
--- NOTE | 2018-12-26 13:17 | P.PNIM ---
Subjective Interval history: Says she is not eating much will add ensure. Still with sob and wheezing but imoprpved some. Feels tired. With chest congestion and cough . No feevr ro chills. Physical Exam Vital signs: Vital Signs 12/25/18 14:00 12/25/18 14:49 12/25/18 15:00 Temperature Pulse Rate 88 82 93 H Respiratory Rate 18 Blood Pressure Pulse Oximetry 12/25/18 16:00 12/25/18 17:00 12/25/18 18:00 Temperature 98.0 F Pulse Rate 84 82 90 Respiratory Rate 16 Blood Pressure 123/79 Pulse Oximetry 98 12/25/18 19:00 12/25/18 19:28 12/25/18 20:00 Temperature Pulse Rate 84 85 88 Respiratory Rate 18 20 Blood Pressure 119/54 L Pulse Oximetry 96 97 12/25/18 21:00 12/25/18 22:00 12/25/18 23:00 Temperature Pulse Rate 86 88 78 Respiratory Rate Blood Pressure Pulse Oximetry 12/26/18 00:00 12/26/18 00:16 12/26/18 01:00 Temperature Pulse Rate 81 74 82 Respiratory Rate 18 18 Blood Pressure 125/70 Pulse Oximetry 97 12/26/18 02:00 12/26/18 03:00 12/26/18 04:00 Temperature Pulse Rate 78 74 73 Respiratory Rate 22 Blood Pressure 113/77 Pulse Oximetry 97 12/26/18 05:00 12/26/18 05:47 12/26/18 06:00 Temperature Pulse Rate 70 82 78 Respiratory Rate 18 Blood Pressure Pulse Oximetry 12/26/18 07:00 12/26/18 08:00 12/26/18 09:00 Temperature 98.1 F Pulse Rate 73 74 84 Respiratory Rate 20 Blood Pressure 126/68 Pulse Oximetry 96 12/26/18 10:00 12/26/18 10:18 12/26/18 11:00 Temperature Pulse Rate 80 89 80 Respiratory Rate 16 Blood Pressure Pulse Oximetry 97 12/26/18 12:00 Temperature 98.2 F Pulse Rate 85 Respiratory Rate 20 Blood Pressure 119/65 Pulse Oximetry 97 Intake & Output 12/25/18 12/26/18 12/26/18 18:59 06:59 18:59 Intake Total 1100 / 1100 720 / 720 Output Total 600 / 600 700 / 700 Balance 500 / 500 20 / 20 Weight 64.8 kg Intake: Oral 1100 / 1100 720 / 720 Output: Urine 600 / 600 700 / 700 Other: Date of Last Bowel Movement 12/25/18 12/24/18 Narrative: Gen.: 68 yo female, appears short of breath. Cardiovascular: Regular rate and rhythm. No murmurs, rubs or gallops. Respiratory: Poor air movement. Scattered wheezing. Short of breath. Abdomen: Soft, nontender, nondistended. No peritoneal signs. Musculoskeletal: No gross deformities. No edema. Skin: No obvious rashes or erythema. Neuro: Sensory and motor grossly intact. Cranial nerves grossly intact. Normal speech. Results Labs CBC & Chem 7: 12/21/18 09:01 12/21/18 09:01 Assessment and Plan Plan Severe COPD exacerbation Acute on chronic respiratory failure patient is on 2-3 L at home. Now requiring 4 L by nasal cannula Continue supplemental oxygen IV steroids, taper as tolerated. Continue Levaquin DuoNeb scheduledand as need taper Supplemental oxygen, keep O2 sat >92%, monitor Add IS, EZ Pap Continue codeine /acetaminophen, tessalon pearles for cough. Add mucinex Add claritin po 5 mf daily Consult pulmonology, appreciate assistance Protein calorie malnutrition with decreased p.o. intake secondary to severe COPD with exacerbation, add Ensure Coronary artery disease See HPI for cardiac catheterization details Continue beta-olivia and aspirin Hyperlipidemia Continue gemfibrozil and statin DVT ppx Heparin Discussed with the patient, nurse Discharge when patient is improving. Taper steroids and if tolerates and improves, probably discharge tomorrow if cleared by pulm. Progress Note: Quality VTE Deep Vein Thrombosis/Pulmonary Embolism Present on Admission: No
--- NOTE | 2018-12-26 13:23 | P.DCO ---
Physical Therapy Order: Evaluate and treat Home Health Nursing Order: Medical education, Signs/symptoms of disease process, Oxygen administration education, Medication education-adverse effect, Nursing assessment with vital signs and Telehealth Case Management Consult Case Management Consult-Home Health: Yes I have seen patient Sheryl Dumas on 12/26/18. My clinical findings support the need for the requested home health care services because: Limited mobility due to disease progression and Patient has SOB I certify that my clinical findings support that this patient is homebound because: Post-op weakness, Hx COPD - exertion dyspnea/weakness and Unsteady gait/balance
--- NOTE | 2018-12-26 13:59 | P.DS ---
DS: Providers Date of admission: 12/20/18 21:06 Primary care physician: No Primary Care Physician Consults: 12/20/18 21:37 Consult to Pulmonology Routine Consulting Provider: Jacinto Renae Patient known to:: Jacinto Renea Reason for Consultation: COPD Exacerbation Notified:: Service Spoke with:: citlaly Date Notified:: 12/21/18 Time Notified:: 06:03 Ordering Provider: JERMAINE DS: Summary Severe COPD exacerbation Acute on chronic respiratory failure patient is on 2-3 L at home. Now requiring 4 L by nasal cannula Continue supplemental oxygen IV steroids, taper as tolerated. Continue Levaquin DuoNeb scheduledand as need taper Supplemental oxygen, keep O2 sat >92%, monitor Add IS, EZ Pap Continue codeine /acetaminophen, tessalon pearles for cough. Add mucinex Add claritin po 5 mf daily Consult pulmonology, appreciate assistance. Patient improving. Protein calorie malnutrition with decreased p.o. intake secondary to severe COPD with exacerbation, add Ensure Coronary artery disease See HPI for cardiac catheterization details Continue beta-olivia and aspirin Hyperlipidemia Continue gemfibrozil and statin Improved DC home in stable condition however expect decompensation as patient with severe COPD. To follow up as OP with PCP and consultants. [employer] Prescription Drug Monitoring Database has been queried and verified prior to prescribing the controlled substance. Acute pain exception. This patient has normal, predicted, physiological, and time limited response to an adverse mechanical stimulus associated with surgery, trauma, or acute illness as described in my notes. There is a lack of alternative treatment options other than to include the prescribed narcotic treatment for this condition. Time Spent with Patient Total time spent providing and/or coordinating discharge services: > 30 min Quality: VTE Deep Vein Thrombosis/Pulmonary Embolism Present on Admission: No Exam Narrative Exam Narrative: Gen.: 68 yo female, appears short of breath. Cardiovascular: Regular rate and rhythm. No murmurs, rubs or gallops. Respiratory: Poor air movement, however improving. No wheezing. Less sob Abdomen: Soft, nontender, nondistended. No peritoneal signs. Musculoskeletal: No gross deformities. No edema. Skin: No obvious rashes or erythema. Neuro: Sensory and motor grossly intact. Cranial nerves grossly intact. Normal speech. Results Impressions ITS Impressions Chest X-Ray 12/20/18 17:08 CONCLUSION: No acute cardiopulmonary disease. Discharge Plan Discharge Disposition Patient Disposition: Disch W/Home Health Service Discharge Condition Condition: Stable Discharge Order Discharge Orders: Discharge Order (Routine); Ordered 12/27/18 Ordered By: Jenny Ortiz Discharge Details Anticipated Discharge Date: 12/27/18 Discharge Comment: DC when arrangements are done and cleared by pulm Physicians Team ED Provider: Harjit Zavala ED Midlevel Provider: Homer Campbell Primary Care Provider: Primary Care Eliane Corea Attending Provider: Jenny Ortiz Other Providers: Jacinto Renae Rxs /Orders / Referrals /Forms Prescriptions: New prednisone 5 mg tablets,dose pack See Label Instructions PO PER PKG DIR Qty: 21 RF: 0 loratadine 10 mg Tablet 5 mg PO DAILY Qty: 30 RF: 0 acetaminophen-codeine 300-30 mg Tablet 1 tab PO Q6H PRN (Reason: Acute Pain Exception) Qty: 10 RF: 0 Continue gemfibrozil 600 mg Tablet 600 mg PO DAILY RF: 0 budesonide-formoterol [Symbicort] 160-4.5 mcg/actuation Hfa Aerosol Inhaler 2 puff INHALATION BID RF: 0 bupropion HCl 150 mg Tablet Sustained-Release 12 Hr 150 mg PO DAILY RF: 0 tiotropium bromide [Spiriva with HandiHaler] 18 mcg Capsule, W/Inhalation Device 1 cap INHALATION DAILY RF: 0 albuterol sulfate [Ventolin HFA] 90 mcg/actuation Hfa Aerosol Inhaler 2 puff INHALATION Q6H PRN (Reason: Shortness Of Breath) RF: 0 atorvastatin 40 mg Tablet 40 mg PO HS 30 Days Qty: 30 RF: 0 enalapril maleate 5 mg Tablet 5 mg PO BID Qty: 60 RF: 0 prednisone 20 mg Tablet 20 mg PO BID Qty: 15 RF: 0 isosorbide mononitrate 30 mg Tablet Extended Release 24 Hr 30 mg PO DAILY@0700 Qty: 30 RF: 0 aspirin 81 mg Tablet,Delayed Release (Dr/Ec) 81 mg PO DAILY Qty: 30 RF: 0 carvedilol [Coreg] 3.125 mg Tablet 3.125 mg PO BID Qty: 60 RF: 0 benzonatate [Tessalon Perles] 100 mg Capsule 100 mg PO Q8H PRN (Reason: Cough) Qty: 21 RF: 0 guaifenesin [Mucinex] 600 mg Tablet Extended Release 12hr 600 mg PO BID Qty: 14 RF: 0 Referrals: Jacinto Renae MD [Physician] - See Instructions ( Please call the physician's office to book the appointment to be seen within [1-2 weeks ].) Primary Care Eliane Corea [Primary Care Provider] - See Instructions ( Please call the physician's office to book the appointment to be seen within [2-3 days with PCP ].) Discharge Instructions Patient Printed Instructions: Prednisone (By mouth), COPD (Chronic Obstructive Pulmonary Disease) (DC) Additional Instructions: Your Health Problems: Goals to Promote Your Health: * To prevent worsening of your condition * To maintain your health at the optimal level Directions to Meet Your Goals: * Take your medications as prescribed * Follow your dietary instruction * Follow activity as directed * Keep your appointments as scheduled * Take your immunizations and boosters as scheduled * If your symptoms worsen call your PCP * If no PCP go to Urgent Care or Emergency Room Smoking is dangerous to your health. Avoid second hand smoke. You may reach the 24-hour crisis hotline for domestic abuse at . Post Discharge Care Plan Care Plan Goals: Your Health Problems: Goals to Promote Your Health: * To prevent worsening of your condition * To maintain your health at the optimal level Directions to Meet Your Goals: * Take your medications as prescribed * Follow your dietary instruction * Follow activity as directed * Keep your appointments as scheduled * Take your immunizations and boosters as scheduled * If your symptoms worsen call your PCP * If no PCP go to Urgent Care or Emergency Room Smoking is dangerous to your health. Avoid second hand smoke. You may reach the 24-hour crisis hotline for domestic abuse at . Status ED Status: Left Department Discharge Information Discharge Date/Time: 12/27/18 11:04
[2018-12-27] MEDS: Isosorbide Mononitrate 30 MG ER 24HR Tablet (Imdur) PO SCH (06:05)
[2018-12-27 08:08] VITALS: BP 121/71; TEMP 98.1
[2018-12-27] MEDS: predniSONE 20 MG Tablet PO SCH (08:08)
[2018-12-27] MEDS: Gemfibrozil 600 MG Tablet PO SCH (08:08)
[2018-12-27] MEDS: Magnesium Oxide 400 MG Tablet PO SCH (08:08)
[2018-12-27] MEDS: Loratadine 10 MG Tablet PO SCH (08:08)
[2018-12-27] MEDS: buPROPion 150 MG XL 24 HR Tablet PO SCH (08:08)
[2018-12-27] MEDS: guaiFENesin 600 MG ER Tablet PO SCH (08:09)
[2018-12-27] MEDS: Budesonide-Formoterol 160/4.5 MCG 6 GM Inhaler INH SCH (08:09)
[2018-12-27] MEDS: levoFLOXacin 750 MG Tablet PO SCH (08:09)
[2018-12-27] MEDS: Senna/Docusate Sodium 8.6/50 MG Tablet PO SCH (08:11)
[2018-12-27] MEDS: Tiotropium Bromide 18 MCG/ACT Inhaler INH SCH (08:11)
[2018-12-27 08:58] VITALS: RESP 22; O2SAT 97
[2018-12-27 11:11] VITALS: PULSE 90
== END 2018-12-27 11:04 | disposition home health service (06) | DRG 190 ==
LOC: NEPE 16:57 → NEDA 16:57 → INTOOBSV 21:06 → OBSVTOIN 21:06 → NEDA 23:35 → NEPFCDU 23:42 → HCIS 12-21 03:58
PROVIDERS: ADMIT Hospitalist; ATTEND Hospitalist
CPT/HCPCS: 36600; 71020; 71046; 76937; 80048; 80053; 82805; 85025; 93005; 94060; 94150; 94640; 94664; 94665; 96372; 96374; 99285; G0378; J1644; J2405; J2930; J7506; J7512